=== PATIENT | male | born 1985 | race African-American/Black ===

== ENCOUNTER 2019-10-03 09:49 | Inpatient (IN) | payer SELFPAY ==
[2019-10-03] VITALS (12 sets, daily range): BP systolic 83–144; BP diastolic 13–88
[~2019-10-03] VITALS: Ht 175.3 cm; Wt 86.2 kg
[2019-10-03] MEDS ORDERED: Morphine Sulfate 4mg/ml Inj (IV USE ONLY) IVP ONE (10:15)
[2019-10-03] MEDS ORDERED: Ketorolac 30mg Inj IV ONE (10:15)
[2019-10-03 10:34] LABS: BASOPHILS % (AUTO) 0.9 % (0.0-2.0); EOSINOPHILS % (AUTO) 0.9 % (0.0-3.0); HEMATOCRIT 43.8 % (42.0-52.0); HEMOGLOBIN 14.5 G/DL (14.2-18.0); LYMPHOCYTES % (AUTO) 22.5 % (20.0-45.0); MEAN CORPUSCULAR VOLUME 92 FL (80-99); MONOCYTES % (AUTO) 7.6 % (1.0-10.0); NEUTROPHILS % (AUTO) 68.2 % (45.0-75.0); PLATELET COUNT 201 K/UL (150-450); RED BLOOD COUNT 4.78 M/UL (4.70-6.10); RED CELL DISTRIBUTION WIDTH 11.9 % (11.6-14.8); WHITE BLOOD COUNT 6.1 K/UL (4.8-10.8)
[2019-10-03 10:53] LABS: ANION GAP 10 mmol/L (5-15); BLOOD UREA NITROGEN 15 mg/dL (7-18); CALCIUM 9.1 MG/DL (8.5-10.1); CARBON DIOXIDE 26 MMOL/L (21-32); CHLORIDE 103 MMOL/L (98-107); CREATININE 1.1 MG/DL (0.55-1.30); POTASSIUM 3.7 MMOL/L (3.5-5.1); SODIUM 139 MMOL/L (136-145)
[2019-10-03 10:57] LABS: ALANINE AMINOTRANSFERASE 31 U/L (12-78); ALBUMIN 4.4 G/DL (3.4-5.0); ALBUMIN/GLOBULIN RATIO 1.4 (1.0-2.7); ALKALINE PHOSPHATASE 57 U/L (46-116); ASPARTATE AMINO TRANSFERASE 22 U/L (15-37); BILIRUBIN,TOTAL 0.8 MG/DL (0.2-1.0)
[2019-10-03] MEDS ORDERED: Omnipaque-300 100ml vial INJ PRN (11:15)
--- NOTE | 2019-10-03 11:41 | Anethesia Preoperative Eval ---
Anesthesia Pre-op PMH/ROS General Date of Evaluation: Oct 03, 2019 Time of Evaluation: 12:01 Anesthesiologist: Jayleen ASA Score: ASA 2 - Emergency Mallampati Score Class I : Soft palate, uvula, fauces, pillars visible Class II: Soft palate, uvula, fauces visible Class III: Soft palate, base of uvula visible Class IV: Only hard plate visible Mallampati Classification: Class II Surgeon: Ernesto Diagnosis: Testicular Torsion Surgical Procedure: Orcheopexy Anesthesia History: none Family History: no anesthesia problems Allergies: Coded Allergies: PENICILLINS (Verified Allergy, Unknown, 10/03/19) Medications: see eMAR Patient NPO?: Yes Past Medical History Cardiovascular: Reports: HTN Other: obesity - BMI 30 PSxH Narrative: Hernia Anesthesia Pre-op Phys. Exam Physician Exam Last Vital Signs Date Time Temp Pulse Resp B/P (MAP) Pulse Ox O2 Delivery O2 Flow Rate FiO2 10/03/19 10:52 97.9 10/03/19 10:02 64 17 144/83 100 Room Air Constitutional: NAD Neurologic: CN 2-12 intact Cardiovascular: RRR Respiratory: CTA Gastrointestinal: S/NT/ND Airway Exam Mallampati Score: Class I MO: full ROM: full Teeth: intact Anesthesia Pre-op A/P Labs Hematology Test 10/03/19 10:00 White Blood Count 6.1 K/UL (4.8-10.8) Red Blood Count 4.78 M/UL (4.70-6.10) Hemoglobin 14.5 G/DL (14.2-18.0) Hematocrit 43.8 % (42.0-52.0) Mean Corpuscular Volume 92 FL (80-99) Mean Corpuscular Hemoglobin 30.3 PG (27.0-31.0) Mean Corpuscular Hemoglobin Concent 33.1 G/DL (32.0-36.0) Red Cell Distribution Width 11.9 % (11.6-14.8) Platelet Count 201 K/UL (150-450) Mean Platelet Volume 9.3 FL (6.5-10.1) Neutrophils (%) (Auto) 68.2 % (45.0-75.0) Lymphocytes (%) (Auto) 22.5 % (20.0-45.0) Monocytes (%) (Auto) 7.6 % (1.0-10.0) Eosinophils (%) (Auto) 0.9 % (0.0-3.0) Basophils (%) (Auto) 0.9 % (0.0-2.0) Coagulation Test 10/03/19 10:00 Prothrombin Time 11.3 SEC (9.30-11.50) Prothromb Time International Ratio 1.0 (0.9-1.1) Activated Partial Thromboplast Time 21 SEC (23-33) L Chemistry Test 10/03/19 10:00 Sodium Level 139 MMOL/L (136-145) Potassium Level 3.7 MMOL/L (3.5-5.1) Chloride Level 103 MMOL/L (98-107) Carbon Dioxide Level 26 MMOL/L (21-32) Anion Gap 10 mmol/L (5-15) Blood Urea Nitrogen 15 mg/dL (7-18) Creatinine 1.1 MG/DL (0.55-1.30) Estimat Glomerular Filtration Rate > 60 mL/min (>60) Glucose Level 138 MG/DL (74-106) H Calcium Level 9.1 MG/DL (8.5-10.1) Total Bilirubin 0.8 MG/DL (0.2-1.0) Aspartate Amino Transf (AST/SGOT) 22 U/L (15-37) Alanine Aminotransferase (ALT/SGPT) 31 U/L (12-78) Alkaline Phosphatase 57 U/L (46-116) Total Protein 7.6 G/DL (6.4-8.2) Albumin 4.4 G/DL (3.4-5.0) Globulin 3.2 g/dL Albumin/Globulin Ratio 1.4 (1.0-2.7) Lipase 151 U/L (73-393) Risk Assessment & Plan Assessment: ASA 2E Plan: GA, SED Status Change Before Surgery: No Pre-Antibiotics Dru Gram Ancef IV Given Within 1 Hr of Incision: Yes Time Given: 12:16 Dillon Clemens MD Oct 03, 2019 11:41
--- NOTE | 2019-10-03 11:42 | Immediate Post-Op Evaluation ---
Immediate Post-Op Evalulation Immediate Post-Op Evalulation Procedure: Orcheopexy Date of Evaluation: Oct 03, 2019 Time of Evaluation: 13:29 IV Fluids: 700 LR Blood Products: 0 Estimated Blood Loss: 7 Urinary Output: 0 Blood Pressure Systolic: 83 Blood Pressure Diastolic: 43 Pulse Rate: 74 Respiratory Rate: 16 O2 Sat by Pulse Oximetry: 99 Temperature (Fahrenheit): 97.8 Pain Score (1-10): 2 Nausea: No Vomiting: No Complications 0 Patient Status: awake, reacts, patent, none Hydration Status: adequate Dru Gram Ancef IV Given Within 1 Hr of Incision: Yes Time Given: 12:16 Dillon Clemens MD Oct 03, 2019 11:42
--- NOTE | 2019-10-03 11:43 | 48 Hour Post Anesthesia Eval ---
Post Anesthesia Evaluation Procedure: Orcheopexy Date of Evaluation: Oct 03, 2019 Time of Evaluation: 15:42 Blood Pressure Systolic: 123 0: 78 Pulse Rate: 82 Respiratory Rate: 18 Temperature (Fahrenheit): 98 O2 Sat by Pulse Oximetry: 99 Airway: patent Nausea: No Vomiting: No Pain Intensity: 2 Hydration Status: adequate Cardiopulmonary Status: Stable Mental Status/LOC: patient returned to baseline Follow-up Care/Observations: 0 Post-Anesthesia Complications: 0 Follow-up care needed: ready to discharge Dillon Clemens MD Oct 03, 2019 11:43
[2019-10-03] MEDS ORDERED: Lidocaine 1% MPF 10mg/ml 5ml ONE (11:45)
[2019-10-03] MEDS ORDERED: fentaNYL 100 mcg/2 mL IV ONE (11:47)
--- NOTE | 2019-10-03 11:53 | Diagnostic Imaging Report ---
Indication: Left testicular pain. History of bilateral inguinal hernia. Technique: Multiplanar grayscale and duplex Doppler imaging of the testicles Comparison: None Findings: Respiratory view demonstrates ASYMMETRIC flow with no other flow visualized in the LEFT testicle. The left testicle measures 2.4 x 3.2 x 3.5 cm/32.4 mL. No color or Doppler flow can be detected within the left testicle. This is compatible with torsion/vascular compromise. Echogenicity is homogeneous. No focal mass lesion is identified. No focal area of low echogenicity is noted to suggest testicular infarct at this time. Left testicle is slightly asymmetrically enlarged compared to the right. Left epididymis is asymmetrically engorged compared to the right. There is a heterogeneous structure in the region of the left spermatic cord. Patient with history of prior inguinal hernia repair and this may potentially be related to prominent scarring/fibrosis versus recurrent hernia. Trace simple appearing hydroceles noted. The right testicle measures 5.2 x 2.2 x 3.2 cm/24 mL. Echogenicity is homogeneous. No mass lesion is identified in the right testicle. Color and Doppler flow is visualized within the right testicle. Right epididymis is normal in appearance. Trace simple appearing hydrocele is noted. IMPRESSION: Unable to demonstrate color flow within the LEFT testicle compatible with vascular compromise/ischemia (testicular torsion versus vascular compromise related to given history of prior inguinal hernia repair). Urology consultation recommended. Portions of the spermatic cord appears asymmetrically enlarged and heterogeneous compared to the right which may be related to fibrosis/scarring or recurrent hernia. Correlation with physical exam findings recommended. CT of the pelvis can be made for further assessment as clinically indicated. Findings discussed in person with in the ER at the time of the scan (approx. 11:08).
[2019-10-03] MEDS ORDERED: Sterile Water Irrig 1000ml IRRIG ONE (12:00)
[2019-10-03] MEDS ORDERED: LR 1000ml ONE (12:00)
[2019-10-03] MEDS ORDERED: NS Irrig 1000ml ONE (12:00)
--- NOTE | 2019-10-03 12:03 | Emergency Room Report ---
History of Present Illness General Chief Complaint: Abdominal Pain Source: Patient Present Illness HPI 34-year-old male presents complaining of left scrotal pain. Started about 2 hours ago. Sudden onset. 9 out of 10, throbbing, nonradiating. Is concerned about a hernia. States he has had 2 prior inguinal hernia surgeries. Denies nausea or vomiting. Denies fevers or chills. No other aggravating relieving factors. Denies any other associated symptoms Allergies: Coded Allergies: PENICILLINS (Verified Allergy, Unknown, 10/03/19) COVID-19 Screening Contact w/high risk pt: No Recent Travel to affected area: No Experienced COVID-19 symptoms?: No COVID-19 Testing performed PATIENT SAFETY ATTENDANT: No Patient History Past Surgical History: other - hernia repair x2 Pertinent Family History: none Social History: Denies: smoking, alcohol use, drug use Immunizations: UTD Reviewed Nursing Documentation: PMH: Agreed; PSxH: Agreed Nursing Documentation-PMH Past Medical History: No History, Except For Review of Systems All Other Systems: negative except mentioned in HPI Physical Exam Vital Signs Date Time Temp Pulse Resp B/P (MAP) Pulse Ox O2 Delivery O2 Flow Rate FiO2 10/03/19 09:52 97.9 62 17 150/83 (105) 100 Room Air Sp02 EP Interpretation: reviewed, normal General Appearance: no apparent distress, alert, GCS 15, non-toxic Head: normocephalic Eyes: bilateral eye normal inspection, bilateral eye PERRL ENT: normal ENT inspection Neck: normal inspection Respiratory: normal inspection Cardiovascular #1: normal inspection Gastrointestinal: normal inspection Rectal: deferred Genitourinary: no CVA tenderness, other - L scrotal tenderness Musculoskeletal: back normal Neurologic: alert, motor strength/tone normal, oriented x3, sensory intact, responsive, speech normal Psychiatric: normal inspection Skin: no rash Lymphatic: normal inspection Procedures Critical Care Time Critical Care Time i. I feel this is a highly complex case requiring extensive working including EKG/Rhythm strip, Xray/CT/US, Blood/urine lab work, repeat exams while in ED, and administration of strong opiates/narcotics for pain control, admission to hospital or close patient follow up. Total time: 60 min bedside evaluation and treatment excludes procedures (EKG). Reason for critical care: Testicular torsion Possible complications: hypotension, hypertension, AL, shock, arrhythmias, metabolic acidosis, end organ damage, respiratory failure. Interventions: Detorsed. Labs, ultrasound, consultation with urology Course: Patient presenting with left scrotal pain. Testicle is high riding in a abnormal plane. I attempted to detorsed with minimal relief. Ultrasound shows no vascularity to the left testicle. Concerning for torsion. Urology consulted. Ice applied. Patient will be taken to the OR Consultations: nursing staff, EMS, family Performed by: Dr Heath Tolerated well condition = serious j. because of unstable vital signs this patient had a condition that could potentially threaten life or limb. I feel this is a critical patient who required my full attention while patient was considered critical. Total Critical Care Time excluding procedures was greater than 60 minutes Medical Decision Making Diagnostic Impression: Primary Impression: Testicular torsion ER Course 34-year-old male presents with left scrotal pain. History of hernia Differentialtorsion, epididymitis, hernia Placed in stretcher. After initial history physical exam reveals male in mild distress. On exam the left testicle is high riding and laying in an abnormal plane. I attempted to detorsed with some relief noted. Scrotal ultrasound confirms no vascularity to the left testicle concerning for torsion. Confirmed by radiologist at bedside. Discussed with patient. Discussed with urology who will take patient to the OR immediately. Patient will be admitted to Dr. Quintanilla's service Diagnosistesticular torsion Admitted to floor, taken to the OR in serious condition Labs Test 10/03/19 10:00 White Blood Count 6.1 K/UL (4.8-10.8) Red Blood Count 4.78 M/UL (4.70-6.10) Hemoglobin 14.5 G/DL (14.2-18.0) Hematocrit 43.8 % (42.0-52.0) Mean Corpuscular Volume 92 FL (80-99) Mean Corpuscular Hemoglobin 30.3 PG (27.0-31.0) Mean Corpuscular Hemoglobin Concent 33.1 G/DL (32.0-36.0) Red Cell Distribution Width 11.9 % (11.6-14.8) Platelet Count 201 K/UL (150-450) Mean Platelet Volume 9.3 FL (6.5-10.1) Neutrophils (%) (Auto) 68.2 % (45.0-75.0) Lymphocytes (%) (Auto) 22.5 % (20.0-45.0) Monocytes (%) (Auto) 7.6 % (1.0-10.0) Eosinophils (%) (Auto) 0.9 % (0.0-3.0) Basophils (%) (Auto) 0.9 % (0.0-2.0) Prothrombin Time 11.3 SEC (9.30-11.50) Prothromb Time International Ratio 1.0 (0.9-1.1) Activated Partial Thromboplast Time 21 SEC (23-33) Sodium Level 139 MMOL/L (136-145) Potassium Level 3.7 MMOL/L (3.5-5.1) Chloride Level 103 MMOL/L (98-107) Carbon Dioxide Level 26 MMOL/L (21-32) Anion Gap 10 mmol/L (5-15) Blood Urea Nitrogen 15 mg/dL (7-18) Creatinine 1.1 MG/DL (0.55-1.30) Estimat Glomerular Filtration Rate > 60 mL/min (>60) Glucose Level 138 MG/DL (74-106) Calcium Level 9.1 MG/DL (8.5-10.1) Total Bilirubin 0.8 MG/DL (0.2-1.0) Aspartate Amino Transf (AST/SGOT) 22 U/L (15-37) Alanine Aminotransferase (ALT/SGPT) 31 U/L (12-78) Alkaline Phosphatase 57 U/L (46-116) Total Protein 7.6 G/DL (6.4-8.2) Albumin 4.4 G/DL (3.4-5.0) Globulin 3.2 g/dL Albumin/Globulin Ratio 1.4 (1.0-2.7) Lipase 151 U/L (73-393) CT/MRI/US Diagnostic Results CT/MRI/US Diagnostic Results : Imaging Test Ordered: Scrotal US Impression Procedure: US Testicular Scrotum Indication: Left testicular pain. History of bilateral inguinal hernia. Technique: Multiplanar grayscale and duplex Doppler imaging of the testicles Comparison: None Findings: Respiratory view demonstrates ASYMMETRIC flow with no other flow visualized in the LEFT testicle. The left testicle measures 2.4 x 3.2 x 3.5 cm/32.4 mL. No color or Doppler flow can be detected within the left testicle. This is compatible with torsion/vascular compromise. Echogenicity is homogeneous. No focal mass lesion is identified. No focal area of low echogenicity is noted to suggest testicular infarct at this time. Left testicle is slightly asymmetrically enlarged compared to the right. Left epididymis is asymmetrically engorged compared to the right. There is a heterogeneous structure in the region of the left spermatic cord. Patient with history of prior inguinal hernia repair and this may potentially be related to prominent scarring/fibrosis versus recurrent hernia. Trace simple appearing hydroceles noted. The right testicle measures 5.2 x 2.2 x 3.2 cm/24 mL. Echogenicity is homogeneous. No mass lesion is identified in the right testicle. Color and Doppler flow is visualized within the right testicle. Right epididymis is normal in appearance. Trace simple appearing hydrocele is noted. IMPRESSION: Unable to demonstrate color flow within the LEFT testicle compatible with vascular compromise/ischemia (testicular torsion versus vascular compromise related to given history of prior inguinal hernia repair). Urology consultation recommended. Portions of the spermatic cord appears asymmetrically enlarged and heterogeneous compared to the right which may be related to fibrosis/scarring or recurrent hernia. Correlation with physical exam findings recommended. CT of the pelvis can be made for further assessment as clinically indicated. Findings discussed in person with in the ER at the time of the scan (approx. 11:08). Last Vital Signs Date Time Temp Pulse Resp B/P (MAP) Pulse Ox O2 Delivery O2 Flow Rate FiO2 10/03/19 11:47 98.3 69 19 137/80 99 Room Air Status: improved Disposition: ADMITTED INPATIENT Condition: Serious Referrals: NOT CHOSEN IPA/,REFERRING (PCP) David Heath MD Oct 03, 2019 12:03
[2019-10-03] MEDS ORDERED: Ketorolac 30mg Inj ONE (12:49)
[2019-10-03] MEDS ORDERED: D5 1/2NS 1,000 ML IV SCH (16:00)
[2019-10-03] MEDS ORDERED: Ketorolac 30mg Inj IV SCH (18:00)
--- NOTE | 2019-10-03 18:17 | Diagnostic Imaging Report ---
EXAM: CT Abdomen and Pelvis With Intravenous Contrast CLINICAL HISTORY: PAIN TECHNIQUE: Axial computed tomography images of the abdomen and pelvis with intravenous contrast. One or more of the following dose reduction techniques were used: automated exposure control, adjustment of the mA and/or kV according to patient size, use of iterative reconstruction technique. CT DI: 7.4 DLP: 393.6 COMPARISON: No relevant prior studies available. FINDINGS: The lung bases demonstrate mild subsegmental atelectasis. The liver, biliary tree, pancreas, spleen, kidneys, and adrenal glands are within normal limits. There is no bowel obstruction or perforation. Visualized portions of the appendix are unremarkable. No inflammation about the cecal tip. Scrotal gas. Clips to the right inguinal region. Recent hernia repair could explain soft tissue air. However, correlate for symptoms of infection. Presence of gas forming organism is also possible. No abscess is identified. No dissection of air along the perineum. No abdominal aortic aneurysm. No acute fracture. IMPRESSION: Scrotal gas. Clips to the right inguinal region. Recent hernia repair could explain soft tissue air. However, correlate for symptoms of infection. Presence of gas forming organism is also possible.
[2019-10-03] MEDS: HYDROcodone/Acetamin 5/325 tab ORAL PRN ×2 (18:37→22:42)
[2019-10-03] MEDS ORDERED: ceFAZolin 1gm in D5W 55ml IVPB SCH (22:00)
--- NOTE | 2019-10-05 22:31 | Discharge Summary ---
Discharge Summary Discharge Summary _ DATE OF ADMISSION: 10/03/2019 DATE OF DISCHARGE: 10/03/2019 DISCHARGED BY: Dr. Nic Goss CONSULTANTS: Dr. Raúl Orozco BRIEF HOSPITAL COURSE: Patient is a 34-year-old male who presented to ED due to left scrotal pain that started 2 hours prior to admission. Pain had acute onset, described to be throbbing, 9 out of 10 and nonradiating. He had 2 prior inguinal hernia surgeries. Upon evaluation at ED, the left testicle was high riding and laying in an abnormal plane. Scrotal ultrasound confirmed no vascularity in the left testicle concerning for torsion. Urologist was urgently consulted and patient was taken to the OR. He underwent left testicular exploration and untorsion of the left testicle with orchidopexy and right orchidopexy. He tolerated procedure well. Post-operatively, he was given pain management. Diet was advanced. He was given his last dose of antibiotic. He was eventually discharged home. FINAL DIAGNOSES: Left testicular torsion. OPERATION: Left testicular exploration, un-torsion of the left testicle with orchidopexy, right orchidopexy as well. DISPOSITION: Patient was discharged home. DISCHARGE MEDICATIONS: No known medication. DISCHARGE INSTRUCTIONS: Follow-up with Dr Orozco in a week. I have been assigned to complete a discharge summary on this account, I was not involved with the patient's management.--FRANKIE Alvarenga Jacqueline Robles NP Oct 05, 2019 22:30
--- NOTE | 2019-10-06 23:30 | Operative Note - Dictated ---
DATE OF OPERATION: 10/03/2019 SURGEON: Raúl Orozco MD PREOPERATIVE DIAGNOSIS: Left testicular torsion. POSTOPERATIVE DIAGNOSIS: Left testicular torsion. OPERATION: Left testicular exploration, un-torsion of the left testicle with orchidopexy, right orchidopexy as well. ANESTHESIA: General FINDINGS: Left testicular torsion. INDICATIONS FOR SURGERY: The patient presents to the emergency room with a sharp left testicular pain for approximately hours. Duplex ultrasound was done showing no blood flow to the left testicle. Treatment options were explained to the patient at great length. He understands the nature of his condition and the risk of losing the testicle and signed the consent for possible left orchiectomy versus orchidopexy. He was transferred to the operating room left testicular contents were exposed. DESCRIPTION OF PROCEDURE: Under general anesthesia, the patient's scrotum was opened in the midline approximately for 2 cm. Left testicle was explored, it was bluish colored with obvious restriction of flow to the pedicle. The testicle was untorsed and immediate bluish colored good vascularization was established through the left testicle. Testicle was placed into the warm wraps, completely vascularized, then was placed into the scrotum, was secured to the subdartos fascia with 2-0 Prolene sutures. Right orchidopexy was as well performed. After copious irrigation of the scrotum, wound was closed in multiple layers. Subcuticular closure for the skin. Sponge count and instrument count was correct. Raúl Orozco M.D. DR: SARAVANAN JOB#: [id number] CC:
== END 2019-10-03 23:23 | disposition home or self-care (01) | DRG 712 ==
LOC: EMR 10:15 → EDBEDREQ 11:09 → EMR 11:55 → 3E 14:43
PROC: 0VSC0ZZ Reposition Bilateral Testes, Open Approach (ICD-10-PCS; principal; 2019-10-03 11:30)
PROC: 0VNB0ZZ Release Left Testis, Open Approach (ICD-10-PCS; principal; 2019-10-03 11:30)
DX: N44.00 Torsion of testis, unspecified (principal); Z88.0 Allergy status to penicillin
CPT/HCPCS: 36415; 74177; 76870; 80053; 83690; 85025; 85610; 85730; 86850; 86900; 86901; 94003; 94150; 96361; 96374; 96375; 99291; J2405; J7030; U0002